=== PATIENT | male | born 1995 | race Caucasian/White ===

== ENCOUNTER 2023-02-05 09:23 | Emergency (ER) | payer OTHER, SELFPAY ==
[2023-02-05 09:34] VITALS: BP 161/92; PULSE 100; RESP 18; TEMP 37; O2SAT 96; BMI 26.6
[2023-02-05 09:44] VITALS: BP 161/62; PULSE 99; RESP 22; O2SAT 96
--- NOTE | 2023-02-05 09:46 | XRR_ITS ---
PROCEDURE INFORMATION: Exam: XR Left Finger(s) Exam date and time: 02/05/2023 9:49 AM Age: 27 years old Clinical indication: Injury or trauma; Other: Saw; Laceration; Left; Middle finger TECHNIQUE: Imaging protocol: Radiologic exam of the left fingers. Views: Minimum 2 views. COMPARISON: No relevant prior studies available. FINDINGS: Bones/joints: There is amputation of the distal margin of the distal 3rd phalangeal tuft. Joint alignment is normal. Joint spaces are preserved. No fracture is seen elsewhere. Soft tissues: There is soft tissue amputation of the distal 3rd finger. No radiodense foreign body in the soft tissues. XR/XR finger LT min 2V [id number] IMPRESSION: Amputation of the tip of the distal 3rd phalanx with overlying soft tissue amputation.
--- NOTE | 2023-02-05 09:48 | ED_ITS ---
HPI - Wound/Laceration General: Chief Complaint: Wound/Laceration Stated Complaint: left middle finger trama Time Seen by Provider: 02/05/23 09:46 Source: patient Mode of arrival: ambulatory History of Present Illness: 27-year-old male had trauma to his left middle finger while at work he got caught in a press the tip of the finger was avulsed. No other injuries. He is unsure of his last tetanus shot patient is right-hand dominant Onset (ago): minute(s) Extremity Location: Left: wrist (Left third finger) Place: work Patient tetanus UTD: No Context: accidental Associated symptoms: Denies chills, fever(s), nausea or vomiting Treatments prior to arrival: bandage Review of Systems Const: Denies: fever(s), chills, fatigue or malaise ENMT: Denies: nasal congestion or other Card: Denies: chest pain or edema Resp: Denies: dyspnea GI: Denies: abdominal pain, nausea or vomiting Skin/Breast: Denies: rash or pruritus PFSH ED PFSH: Medical History Psychiatric care Social History Smoking and tobacco status: current every day smoker Alcohol intake: current Substance/Drug Use: current Physical Exam Const: COMMON NORMALS: no acute distress GENERAL APPEARANCE: cooperative and comfortable ORIENTATION/CONSCIOUSNESS: Yes awake, Yes oriented to person, Yes oriented to place and Yes oriented to time HENMT: COMMON NORMALS: normocephalic, atraumatic and hearing grossly normal bilaterally HEAD & SCALP: normocephalic and atraumatic Resp: COMMON NORMALS: normal respiratory effort, No retractions, No use of accessory muscles and clear to auscultation bilaterally AUSCULTATION: clear to auscultation bilaterally Cardio: COMMON NORMALS: regular rate, regular rhythm and No murmurs present (Cardio) RATE: regular rate RHYTHM: regular rhythm Extremity: OTHER: Left third finger distal tip amputation including some bone. X-ray confirms small portion of the tuft was avulsed. Neuro: SENSORIUM/ORIENTATION: Yes oriented to person, Yes oriented to place and Yes oriented to time Skin: COMMON NORMALS: no rashes or lesions noted GENERAL SKIN EXAM: no rashes or lesions noted Course Vital Signs: Vital signs: Vital Signs Temperature 98.6 F 02/05/23 09:34 Pulse Rate 99 02/05/23 09:44 Respiratory Rate 22 H 02/05/23 09:44 Blood Pressure 161/62 02/05/23 09:44 Pulse Oximetry 96 02/05/23 09:44 Oxygen Delivery Me thod Room Air 02/05/23 09:44 MDM - Wound/Laceration Medical Decision Making Wound cleansed pain medications given dressing applied discussed with Ortho on- call will discharge from the ER they will see in outpatient setting and plan for definitive care if needed suspect bone tip may need to be rongeured back. Wound care instructions given to the patient. Medical Records I reviewed the patient's medical records. Lab Data I reviewed the patient's lab results. Radiology Impressions Finger X-Ray 02/05/23 09:46 IMPRESSION: Amputation of the tip of the distal 3rd phalanx with overlying soft tissue amputation. All radiology interpretation(s) finalized by discharge Discharge Plan Discharge Patient Disposition: Home Clinical Impression: Traumatic amputation of fingertip Condition: Stable Prescriptions: New clindamycin HCl 300 mg capsule 300 mg PO Q6H 7 Days Qty: 28 0RF mupirocin 2 % ointment 1 applic topical BID Qty: 22 0RF No Action methadone 10 mg Tablet 100 mg PO DAILY Bactrim DS 800-160 mg Tablet 1 tab PO BID Discharge Orders: Discharge ED (Routine); Ordered 02/05/23 Ordered By: Leandro Roque Referrals: Samuel Akins Jr, MD [Primary Care Provider] - Discharge Diet: Usual diet Discharge Activity: Increase activity as tolerated Patient Instructions: Opioid Safety, Pain Management Activity Restrictions/Additional Instructions: Case management make arrangements. Follow-up with orthopedics for further treatment. Keep wound covered with topical antibiotics and Vaseline gauze until you follow-up with Ortho. Coding Level of Care Code ED [employer] for Kwasi Thomas
[2023-02-05] MEDS: ceFAZolin 1,000 MG in water for injection-sterile 2.5 ML 1 MG IM (09:59)
[2023-02-05] MEDS: tetanus-dipt-pertussis 0.5 mL SDV IM (10:00)
== END 2023-02-05 11:55 | disposition home or self-care (01) ==
PROVIDERS: Emergency Provider Family Medicine; PCP Pediatrics Adolescent Medicine
DX: S68.613A Complete traumatic transphalangeal amputation of left middle finger, initial encounter (principal); W31.89XA Contact with other specified machinery, initial encounter; Y99.0 Civilian activity done for income or pay; F17.210 Nicotine dependence, cigarettes, uncomplicated; Z79.891 Long term (current) use of opiate analgesic; Z23 Encounter for immunization
CPT/HCPCS: 73140; 90471; 90715; 96372; 99284; J0690

== ENCOUNTER 2023-02-08 10:29 | Day surgery (SDC) | payer OTHER, SELFPAY ==
[2023-02-08 10:58] VITALS: BMI 26.6
[2023-02-08] MEDS: sodium chloride 0.9% 1,000 ML 30 ML IV (11:44)
[2023-02-08 11:45] VITALS: BP 140/92; PULSE 79; RESP 18; TEMP 37.7; O2SAT 99
--- NOTE | 2023-02-08 11:48 | P.ANESASSM_ITS ---
Pre-Anesthetic Assessment Height/Weight: Height 1.7 m Weight 77.111 kg Temp Pulse Resp BP Pulse Ox O2 Del Method 99.8 F H 79 18 140/92 99 Room Air 02/08/23 11:45 02/08/23 11:45 02/08/23 11:45 02/08/23 11:45 02/08/23 11:45 02/08/23 11:45 Operation Date: 02/08/23 10:50 Proposed Procedures p Amputation Finger(Left) - Brian Shay, DO Familial anesthetic complications: none Was Beta El taken within 24 hours: N/A Was Clonidine taken within 24 hours: N/A Last intake: Intake ([employer] energy drink - clear liquid) Last Liquid Date 02/08/23 Last Liquid Time 10:00 Last Solid Date 02/07/23 Last Solid Time 23:00 Social No alcohol and No tobacco Exam alert, oriented x 3, clear to auscultation bilaterally and regular rate & rhythm Airway Mallampati: Class I Dentition: full 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 Anesthetic Plan ASA status: 2 Anesthesia: Choice Risk of > 500 ml blood loss (7ml/kg in children): No Medications/Allergies Home Medications Medication Instructions Recorded Confirmed Last Taken Type clindamycin HCl 300 mg capsule 300 mg PO Q6H 7 days #28 caps 02/05/23 02/08/23 02/08/23 09:30 Rx methadone 10 mg tablet 100 mg PO DAILY 02/05/23 02/08/23 02/08/23 09:30 History mupirocin 2 % topical ointment 1 applic topical BID #22 grams 02/05/23 02/08/23 Unknown Rx sulfamethoxazole 800 1 tab PO BID 02/05/23 02/08/23 02/08/23 09:30 History mg-trimethoprim 160 mg tablet (Bactrim DS) Allergies Allergy/AdvReac Type Severity Reaction Status Date / Time Penicillins Allergy rash Verified 02/08/23 10:53 Current Medications Generic Name Dose Route Start Last Admin Trade Name Freq PRN Reason Stop Dose Admin Sodium Chloride 1,000 mls @ 30 mls/hr 02/08/23 11:45 02/08/23 11:44 Sodium Chloride 0.9% IV 02/09/23 11:44 30 mls/hr .Q24H ANDREAS Administration PFSH Anesthesia Medical History Psychiatric care Social History Smoking and tobacco status: current every day smoker Alcohol intake: current Substance/Drug Use: current Data Anesthesia Cardiac Studies: No Data to Display
--- NOTE | 2023-02-08 12:22 | W.PM.OPSUD ---
Surgery/Procedure H&P Update DATE OF PROCEDURE: February 08, 2023 DATE H&P PERFORMED: 02/07/23 H&P UPDATE INFORMATION: I have reviewed H&P completed within last 30 days, I have examined patient prior to procedure and No changes to prior documentation PREOP DIAGNOSIS: Traumatic amputation left middle fingertip PRIMARY INDICATION FOR PROCEDURE: Traumatic amputation left middle fingertip PLANNED PROCEDURE: Operation Date: 02/08/23 10:50 Proposed Procedures p Amputation Finger(Left) - Brian Day DO
[2023-02-08] MEDS: ceFAZolin 2,000 MG in sodium chloride 0.9% (plus) 50 ML 100 MG IV (13:46)
[2023-02-08] MEDS: ceFAZolin 1,000 mg SDV 1000 MG IRRIGATION (14:16)
[2023-02-08] MEDS: BUPivacaine 0.5% INJ 10 mL 5 ML INJECTION (14:18)
[2023-02-08] MEDS: ROPivacaine 0.5% SDV 30 mL 25 MG INJECTION (14:18)
[2023-02-08] MEDS: neomycin-poly-bacitracin oint 28 gm 1 APPLIC TOPICAL (14:20)
[2023-02-08 14:32] VITALS: BP 118/61; PULSE 70; RESP 16; TEMP 36.1; O2SAT 98
[2023-02-08 14:38] VITALS: BP 108/63; PULSE 67; RESP 18; O2SAT 98
--- NOTE | 2023-02-08 14:42 | P.BOP_ITS ---
Date of Procedure: 02/08/2023 Surgeon: Brian Day DO Chrome Plater Helper(s): None Procedure(s) performed: 1. Left middle finger irrigation and debridement (1 cm x 1 cm x 0.25 cm) 2. Left middle finger revision amputation with secondary healing intention Findings of the procedure(s): Traumatic amputation left middle fingertip with exposed bone beyond the level of soft tissue, procedure went as planned with revision amputation of bone resection past the level of soft tissue for appropriate healing of secondary intention Estimated blood loss: 1 mL Specimen(s) removed: None Post-operative diagnosis: Left middle finger traumatic amputation fingertip distal phalanx
[2023-02-08 14:44] VITALS: BP 132/69; PULSE 83; RESP 16; O2SAT 99
--- NOTE | 2023-02-08 14:44 | P.OP_ITS ---
Operative Report Date of procedure: February 08, 2023 Surgeon: Brian Day DO Procedure: ? Preoperative diagnosis left middle fingertip traumatic amputation Post-op diagnosis: Same, with exposed bone Procedure done: Left middle finger irrigation and debridement with revision left middle finger amputation at the distal phalanx with healing by secondary intention (1 cm x 1 cm x 0.25 cm) Surgeon: Brian Day DO Estimated blood loss: 1mL Finger turnicot 12 minutes IV fluids: See anesthesia record Complications: None Condition: stable Disposition: same day Brief History: Patient's been seen and worked up in the outpatient setting initially had a trauma at work of the left middle finger sustaining? A guillotine amputation at the at the finger pulp and mid substance of the nail plate was amputated with exposed bone.? At this point time we talked about treatment options pt understands the risk benefits complication alternatives surgical nonsurgical t reatment options.? This point time to preserve length as well as to hold off on any flap coverage at this point time pt elects for left middle finger irrigation and debridement with revision amputation of rongeur and the bone just recessed below the soft tissues and plan for secondary intention healing by daily dressing changes to allow this to granulate over the bone.? Patient understands these risks and agrees to proceed with surgical intervention.? All questions answered at this time.? pt received appropriate antibiotics emergency department currently on p.o. antibiotics.? Consent was obtained in the office. Procedure: Patient was seen evaluate in the preoperative holding area.? Consent was reviewed and signed with patient.? Correct extremity was marked.? Once patient was seen eval by anesthesia and cleared for surgery she was taken back to the operative suite.? Patient was transported to the OR table left armboard applied.? All bony prominences were well-padded nonsterile tourniquet applied to the left upper arm.? Patient underwent anesthesia per the anesthesia department once appropriately anesthetized the left upper extremities then prepped and draped in standard orthopedic fashion.? Final timeout performed.? Patient received appropriate perioperative antibiotics. Left middle finger traumatic amputation visualized.? Finger turnicot was placed. Remanent of the nail plate was intact and left alone for structural support.? There was exposed bone directly at the wound bed in order to allow for appropriate granulation over this I then elected to proceed with a revision amputation of removing some of the distal phalanx bone to recess within the soft tissue envelope of the finger pulp to allow for appropriate granulation over the bone.? I thoroughly irrigated the left middle finger with normal saline.? Once appropriately irrigated I then once again debrided the left middle finger of skin subcutaneous tissue fat and bone as well as skin.? This total wound bed was roughly 1 cm x 1 cm x 0.25 cm.? All devitalized tissue of skin and fascia and bone was then removed.? At this point time I perform the revision amputation with the small hand rongeur to contour and recessed the distal phalanx bone below the soft tissue guillotine amputation site.? I utilized a rasp to smooth out the edges. At this point time made sure hemostasis was satisfactory after finger turnicot was removed.? I then used triple antibiotic ointment for Vaseline around the fingertip Xeroform 4 x 4's Curlex and Hilario wrap was then applied to the left middle finger.? Patient was then awakened from anesthesia and taken to PACU in stable condition.? Patient tolerated procedure without any issues. Disposition: Patient taken back in stable condition recovering well.? pt received appropriate discharge instruction as well as pain medication should complete pt antibiotics from the emergency department postoperatively.? pt will follow-up with me in the office in 2 weeks this point time pt can weight-bear as she can tolerate and would recommend after 2 to 3 days pt can perform daily Vaseline gauze dressing changes to help with healing of secondary intention.? Patient understands any questions or concerns and contact the office.? All questions answered.
[2023-02-08 14:50] VITALS: BP 167/100; PULSE 67; RESP 18; TEMP 36.2; O2SAT 99
== END 2023-02-08 15:20 | disposition home or self-care (01) ==
PROVIDERS: Visit Provider Student in an Organized Health Care Education/Training Program
PROC: (CPT 26951; principal; 2023-02-08 10:30)
DX: S68.123A Partial traumatic metacarpophalangeal amputation of left middle finger, initial encounter (principal); W26.8XXA Contact with other sharp object(s), not elsewhere classified, initial encounter; Z79.891 Long term (current) use of opiate analgesic; F17.200 Nicotine dependence, unspecified, uncomplicated
CPT/HCPCS: 26236; J0690; J1100; J2250; J2704; J2795; J3010; J3490; J7030